=== PATIENT | male | born 1990 | race Two or more races ===

== ENCOUNTER 2025-01-04 16:32 | Inpatient (IN) | payer OTHER ==
[~2025-01-04] VITALS: Ht 180.3 cm; Wt 80.2 kg
[2025-01-04 17:00] LABS: COVID AG,FIA SOURCE NASAL SWAB
[2025-01-04] MEDS ORDERED: GUAI100L96 PO (17:02)
[2025-01-04] MEDS ORDERED: DOXY-354 PO (17:02)
[2025-01-04] MEDS ORDERED: CELE200 PO (17:02)
[2025-01-04] MEDS ORDERED: ALBU18HF12 IH (17:02)
[2025-01-04 17:20] LABS: SARS-COV2 (COVID) ANTIGEN,FIA Negative (Negative)
[2025-01-04 17:21] LABS: INFLUENZA TYPE A NEGATIVE FOR TYPE A (NEGATIVE); INFLUENZA TYPE B NEGATIVE FOR TYPE B (NEGATIVE)
[2025-01-04 17:37] LABS: BASOPHILS % (AUTO) 0.6 % (0.0-2.0); EOSINOPHILS % (AUTO) 9.5 % (1.0-6.0); HEMATOCRIT 42.3 % (41-53); HEMOGLOBIN 14.2 g/dL (13.5-17.5); LYMPHOCYTES # (AUTO) 1.4 K/uL (1.0-4.8); LYMPHOCYTES % (AUTO) 15.2 % (22.0-44.0); MEAN CORPUSCULAR HEMOGLOBIN 30.3 pg (26.0-34.0); MEAN CORPUSCULAR HGB CONC 33.6 G/dL (31.0-37.0); MEAN CORPUSCULAR VOLUME 90 fL (80-100); MONOCYTES # (AUTO) 0.9 K/uL (0.1-1.0); MONOCYTES % (AUTO) 9.5 % (2.0-9.0); NEUTROPHILS # (AUTO) 6.1 K/uL (1.8-7.7); NEUTROPHILS % (AUTO) 65.2 % (40.0-70.0); PLATELET COUNT (AUTO) 284 K/uL (150-450); RED BLOOD CELL COUNT(AUTO) 4.68 MIL/uL (4.50-5.90); RED CELL DISTRIBUTION WIDTH 13.6 % (11.5-14.5); WHITE BLOOD COUNT (AUTO) 9.4 K/uL (4.5-11.0)
[2025-01-04 17:45] LABS: ANION GAP 9 mmol/L (8-16); CALCIUM, TOTAL 9.1 mg/dL (8.8-10.5); CARBON DIOXIDE 29 mmol/L (22-29); CHLORIDE 105 mmol/L (98-107); CREATININE 0.75 mg/dL (0.60-1.30); GLOMERULAR FILTR. RATE CALC > 60 mL/min (>60); GLUCOSE,RANDOM 106 mg/dL (70-110); POTASSIUM 4.1 mmol/L (3.5-5.1); SODIUM SERUM 143 mmol/L (136-145); UREA NITROGEN, BLOOD 7 mg/dL (7-18)
[2025-01-04 17:51] LABS: ALANINE AMINOTRANSFERASE 23 U/L (12-78); ALBUMIN 3.4 g/dL (3.4-5.0); ALKALINE PHOSPHATASE 79 U/L (46-116); ASPARTATE AMINOTRANSFERASE 17 U/L (15-37); BILIRUBIN,TOTAL 1.5 mg/dL (0.1-1.0); TOTAL PROTEIN, SERUM 7.3 g/dL (6.4-8.2)
[2025-01-04] MEDS ORDERED: ACETAMINOPHEN 325 MG TABLET PO PRN (19:00)
[2025-01-04] MEDS ORDERED: ONDANSETRON HCL 4 MG/2 ML VIAL IVP PRN (19:00)
[2025-01-04 20:36] VITALS: BP 129/67; PULSE 79; RESP 19; TEMP 97.2; O2SAT 99
[2025-01-04] MEDS: MELATONIN 3 MG TABLET PO PRN (22:21)
[2025-01-05] MEDS ORDERED: SODIUM CHLORIDE 3% 15 ML NEB SOLUTION NEB ONE (00:32)
[2025-01-05 05:16] VITALS: BP 114/74; PULSE 73; RESP 20; TEMP 97.6; O2SAT 97
[2025-01-05 07:22] VITALS: BP 116/66; PULSE 60; RESP 18; TEMP 98; O2SAT 96
[2025-01-05 07:49] LABS: BASOPHILS % (AUTO) 0.8 % (0.0-2.0); HEMATOCRIT 42.6 % (41-53); LYMPHOCYTES # (AUTO) 1.9 K/uL (1.0-4.8); MEAN CORPUSCULAR HGB CONC 32.9 G/dL (31.0-37.0); MEAN CORPUSCULAR VOLUME 91 fL (80-100); MONOCYTES # (AUTO) 0.8 K/uL (0.1-1.0); MONOCYTES % (AUTO) 8.9 % (2.0-9.0); NEUTROPHILS # (AUTO) 4.6 K/uL (1.8-7.7); NEUTROPHILS % (AUTO) 52.6 % (40.0-70.0); PLATELET COUNT (AUTO) 285 K/uL (150-450); RED BLOOD CELL COUNT(AUTO) 4.66 MIL/uL (4.50-5.90); RED CELL DISTRIBUTION WIDTH 13.4 % (11.5-14.5); WHITE BLOOD COUNT (AUTO) 8.8 K/uL (4.5-11.0)
[2025-01-05 08:01] LABS: EOSINOPHILS % (AUTO) 15.7 % (1.0-6.0)
[2025-01-05 08:06] LABS: HIV 1-2 SCREEN 4TH GEN W/RFLX Non Reactive (Non Reactive)
[2025-01-05 08:17] LABS: ANION GAP 9 mmol/L (8-16); CALCIUM, TOTAL 8.9 mg/dL (8.8-10.5); CARBON DIOXIDE 27 mmol/L (22-29); CHLORIDE 106 mmol/L (98-107); CREATININE 0.73 mg/dL (0.60-1.30); GLOMERULAR FILTR. RATE CALC > 60 mL/min (>60); GLUCOSE,RANDOM 86 mg/dL (70-110); POTASSIUM 3.7 mmol/L (3.5-5.1); SODIUM SERUM 142 mmol/L (136-145); UREA NITROGEN, BLOOD 7 mg/dL (7-18)
[2025-01-05] MEDS: ENOXAPARIN SODIUM 40 MG/0.4 ML PF SYRINGE SQ SCH (08:48)
[2025-01-05 13:32] LABS: MTB PCR w/Rif. Resistance-SPUT NOT DETECTED (Not Detectd)
[2025-01-05 13:34] LABS: MTB PCR w/Rif. Resistance-SPUT NOT DETECTED (Not Detectd)
[2025-01-05 19:43] VITALS: BP 100/65; PULSE 76; RESP 18; TEMP 97.5; O2SAT 97
[2025-01-05] MEDS ORDERED: MELATONIN 5 MG TABLET PO PRN (20:45)
[2025-01-05] MEDS: MELATONIN 3 MG TABLET PO PRN (20:48)
[2025-01-06 16:22] VITALS: BP 127/74; PULSE 86; RESP 20; TEMP 99; O2SAT 97
[2025-01-06 20:12] VITALS: BP 113/60; PULSE 71; RESP 18; TEMP 98.6; O2SAT 96
[2025-01-06] MEDS: DiphenhydrAMINE HCL 25 MG CAPSULE PO PRN (21:42)
[2025-01-07 05:20] VITALS: BP 144/83; PULSE 72; RESP 20; TEMP 98.3; O2SAT 96
[2025-01-07 06:06] LABS: QUANTIFERON+,TB2 Antigen Value 0.01 IU/mL; QUANTIFERON, TB GOLD PLUS Negative (Negative)
[2025-01-07 08:13] VITALS: BP 125/89; PULSE 83; RESP 19; TEMP 97.6; O2SAT 98
[2025-01-07 16:59] VITALS: BP 107/59; PULSE 76; RESP 19; TEMP 98.4; O2SAT 98
[2025-01-07 20:01] VITALS: BP 105/63; PULSE 74; RESP 18; TEMP 98.5; O2SAT 98
[2025-01-08 19:35] LABS: PROTHROMBIN TIME 10.6 SEC (9.4-11.6)
[2025-01-08 20:05] VITALS: BP 113/76; PULSE 73; RESP 18; TEMP 98.1; O2SAT 98
[2025-01-09 01:06] LABS: RHEUMATOID FACTOR, REF LAB <10.0 IU/mL (<14.0)
[2025-01-09 04:38] VITALS: BP 111/63; PULSE 69; RESP 19; TEMP 97.8; O2SAT 97
[2025-01-09 08:21] VITALS: BP 104/55; PULSE 59; RESP 18; TEMP 98; O2SAT 100
[2025-01-09] MEDS ORDERED: FentaNYL CITRATE PF 100 MCG/2 ML VIAL ONE (10:00)
[2025-01-09] MEDS ORDERED: LIDOCAINE/PF 1% 30 ML VIAL ONE (10:01)
[2025-01-09] MEDS ORDERED: MIDAZOLAM HCL 2 MG/2 ML VIAL ONE (10:01)
[2025-01-09 16:06] LABS: ANTI-DNA DOUBLE STRANDED ABS <1 IU/mL (0-9)
[2025-01-09 20:27] VITALS: BP 109/65; PULSE 75; RESP 18; TEMP 98.4; O2SAT 98
[2025-01-10 13:22] LABS: BASOPHILS % (AUTO) 0.5 % (0.0-2.0); EOSINOPHILS % (AUTO) 8.1 % (1.0-6.0); HEMATOCRIT 43.1 % (41-53); HEMOGLOBIN 14.2 g/dL (13.5-17.5); LYMPHOCYTES # (AUTO) 1.5 K/uL (1.0-4.8); LYMPHOCYTES % (AUTO) 26.5 % (22.0-44.0); MEAN CORPUSCULAR HEMOGLOBIN 30.3 pg (26.0-34.0); MEAN CORPUSCULAR HGB CONC 33.1 G/dL (31.0-37.0); MEAN CORPUSCULAR VOLUME 92 fL (80-100); MONOCYTES # (AUTO) 0.3 K/uL (0.1-1.0); MONOCYTES % (AUTO) 6.1 % (2.0-9.0); NEUTROPHILS # (AUTO) 3.3 K/uL (1.8-7.7); NEUTROPHILS % (AUTO) 58.8 % (40.0-70.0); PLATELET COUNT (AUTO) 207 K/uL (150-450); RED CELL DISTRIBUTION WIDTH 13.8 % (11.5-14.5); WHITE BLOOD COUNT (AUTO) 5.7 K/uL (4.5-11.0)
[2025-01-10 13:30] LABS: ANION GAP 10 mmol/L (8-16); CARBON DIOXIDE 27 mmol/L (22-29); CHLORIDE 104 mmol/L (98-107); CREATININE 0.85 mg/dL (0.60-1.30); GLOMERULAR FILTR. RATE CALC > 60 mL/min (>60); GLUCOSE,RANDOM 111 mg/dL (70-110); POTASSIUM 4.1 mmol/L (3.5-5.1); SODIUM SERUM 141 mmol/L (136-145); UREA NITROGEN, BLOOD 13 mg/dL (7-18)
[2025-01-10 13:37] LABS: ALANINE AMINOTRANSFERASE 58 U/L (12-78); ALBUMIN 3.4 g/dL (3.4-5.0); ALKALINE PHOSPHATASE 63 U/L (46-116); ASPARTATE AMINOTRANSFERASE 33 U/L (15-37); BILIRUBIN,TOTAL 0.6 mg/dL (0.1-1.0); TOTAL PROTEIN, SERUM 7.3 g/dL (6.4-8.2)
[2025-01-10 20:14] VITALS: BP 112/60; PULSE 71; RESP 18; TEMP 98.8; O2SAT 96
[2025-01-11 07:06] LABS: U HISTOPLASMA GALACTOMANNAN AG Negative (<0.2 ng/mL)
[2025-01-11] MEDS: LEVOFLOXACIN 750 MG TABLET PO SCH (08:08)
[2025-01-11 09:08] VITALS: BP 106/70; PULSE 73; RESP 18; TEMP 98; O2SAT 98
[2025-01-11 19:51] VITALS: BP 111/61; PULSE 71; RESP 20; TEMP 98.2; O2SAT 98
[2025-01-12] MEDS ORDERED: ACET-2247 PO (14:59)
[2025-01-12] MEDS ORDERED: AMOX-457 PO (14:59)
[2025-01-12 17:04] VITALS: BP 108/59; PULSE 55; RESP 20; TEMP 98.1; O2SAT 98
[2025-01-12] MEDS: AMOX TR/POT CLAV 500 MG/125 MG TABLET PO SCH (20:55)
== END 2025-01-13 08:20 | DRG 204 ==
LOC: EMS 16:32 → EDH 19:02 → 6S 20:32
PROVIDERS: ADMIT Internal Medicine; ATTEND Internal Medicine
DX: R91.8 Other nonspecific abnormal finding of lung field (principal); J98.4 Other disorders of lung; Z79.899 Other long term (current) drug therapy
CPT/HCPCS: 71045; 71250; 80048; 80053; 80076; 83516; 83735; 85025; 85610; 86171; 86225; 86431; 86480; 87015; 87081; 87206; 87305; 87385; 87389; 87556; 87804; 94640; 99285; J1650; J2250; J3010; J3490; 36415-L1; 36415-TC